=== PATIENT | female | born 1970 | race African-American/Black ===

== ENCOUNTER 2025-04-15 09:03 | Outpatient (AMB) | payer MEDICARE, MEDICAID, SELFPAY ==
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
[2025-04-15 09:07] VITALS: BP 110/74; PULSE 69; BMI 28.0
--- OUTSIDE RECORDS SUMMARY | 2025-04-15 09:36 | XMS_ITS | Clinical Summary ---
Author Organization [facility] Address [address] [place] [address] Care Team Providers Care Concreting Supervisor Name Role Phone Reece Bravo MD Primary Care Provider [phone] Allergies Active Allergy Reactions Criticality Noted Date Comments Latex 05/23/2024 Seasonal 05/22/2024 Medications Medication Sig Dispensed Refills Start Date End Date Status cetirizine (Allergy, Cetirizine,) 10 MG tablet Take 1 tablet (10 mg total) by mouth daily. 0 Active amitriptyline (ELAVIL) 10 MG tablet Take 3 tablets (30 mg total) by mouth every night at bedtime. 0 Active fluconazole (DIFLUCAN) 150 MG tablet Take 1 tablet (150 mg total) by mouth once. 0 Active fluticasone-vilanterol (BREO ELLIPTA) 100-25 MCG/ACT inhaler 1 inhalation. by Inhaled route daily. 0 Active gabapentin (NEURONTIN) 100 MG capsule Take 1 capsule (100 mg total) by mouth 2 (two) times a day. 0 Active prazosin (MINIPRESS) 2 MG capsule Take 1 capsule (2 mg total) by mouth every night at bedtime. 0 Active prazosin (MINIPRESS) 5 MG capsule Take 1 capsule (5 mg total) by mouth every night at bedtime. 0 Active propranolol (INDERAL) 20 MG tablet Take 1 tablet (20 mg total) by mouth 3 (three) times a day. 0 Active Family History Relation Name Status Comments Father Alive Social History Tobacco Use Types Packs/Day Years Used Date Smoking Tobacco: Never Smokeless Tobacco: Never Alcohol Use Standard Drinks/Week Comments Yes 0 (1 standard drink = 0.6 oz pur e alcohol) Socially Sex and Gender Information Value Date Recorded Sex Assigned at Not on file Gender Identity Not on file Sexual Orientation Not on file Job Start Date Occupation Industry Not on file Not on file Not on file Last Filed Vital Signs Vital Sign Reading Time Taken Comments Blood Pressure 131/72 05/23/2024 9:20 AM EDT Pulse 69 05/23/2024 9:20 AM EDT Temperature 36.6 C (97.9 F) 05/23/2024 9:20 AM EDT Respiratory Rate - - Oxygen Saturation 100% 05/23/2024 9:20 AM EDT Inhaled Oxygen Concentration - - Weight 74.1 kg (163 lb 6.4 oz) 05/23/2024 9:20 A M EDT Height 162.6 cm (5' 4 ) 05/23/2024 9:20 AM EDT Body Mass Index 28.05 05/23/2024 9:20 AM EDT Plan of Treatment Health Maintenance Due Date Last Done Comments Hepatitis B Vaccines (1 of 3 - 3-dose series) 1968 Hepatitis C Screening 1968 Pneumococcal Vaccine (1 of 2 - PCV) 1974 Depression Screening 1980 Preventative Health Evaluation 1986 DTap / Tdap / Td (1 - Tdap) 12/02/1987 Shingrix-Zoster Vaccine (1 o f 2) 12/02/1987 Cervical Cancer Screening (Pap Smear) 1989 Colon Cancer Screening (Colonoscopy) 2013 Breast Cancer Screening (Mammogram) 2018 COVID-19 Vaccine (4 - 2023-2 5 season) 2024 09/27/2021, 01/14/2021, 12/23/2020 Influenza Vaccine (#1) 2025 RSV Ped < 20 months Aged Out No longe r eligible based on patient's age to complete this topic Care Teams Concreting Supervisor Relationship Specialty Start Date End Date Reece Bravo MD [address] [place] [address] PCP - General Internal Medicine 02/15/24
--- OUTSIDE RECORDS SUMMARY | 2025-04-15 09:36 | XMS_ITS | Clinical Summary ---
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 -------- FINAL REPORT -------- Dictated By: Ian Tuttle Dictated Date: 03/01/2025 14:59 ET Assigned Physician: Ian Tuttle Reviewed and Electronically Signed By: Ian Tuttle Signed Date: 03/01/2025 15:01 ET Workstation ID: [id number] Transcribed By: Self Edit Transcribed Date: 03/01/2025 14:59 ET Narrative 03/01/2025 3:01 PM EDT HISTORY: hand numbness TECHNIQUE: AP, lateral, and oblique radiographs of the bilateral hands COMPARISON: None FINDINGS: Right: There is normal mineralization with no evidence of fracture or malalignment. There is mild joint space narrowing at the second, third and fourth DIP joints with subchondral sclerosis and small osteophytes. No significant soft tissue swelling is identified. Left: Normal mineralization without no evidence of fracture or dislocation. There is mild joint space narrowing at the third, fourth and fifth DIP joint with subchondral sclerosis and small osteophytes. Mild joint space narrowing at the base of the thumb with subchondral sclerosis and small osteophyte. Procedure Note Ian Tuttle MD - 03/01/2025 HISTORY: hand numbness TECHNIQUE: AP, lateral, and oblique radiographs of the bilateral hands COMPARISON: None FINDINGS: Right: There is normal mineralization with no evidence of fracture ormalalignment. There is mild joint space narrowing at the second, third andfourth DIP joints with subchondral sclerosis and small osteophytes. Nosignificant soft tissue swelling is identified. Left: Normal mineralization without no evidence of fracture or dislocation.There is mild joint space narrowing at the third, fourth and fifth DIPjoint with subchondral sclerosis and small osteophytes. Mild joint spacenarrowing at the base of the thumb with subchondral sclerosis and smallosteophyte. 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 -------- FINAL REPORT -------- Dictated By: Ian Tuttle Dictated Date: 03/01/2025 14:59 ET Assigned Physician: Ian Tuttle Reviewed and Electronically Signed By: Ian Tuttle Signed Date: 03/01/2025 15:01 ET Workstation ID: [id number] Transcribed By: Self Edit Transcribed Date: 03/01/2025 14:59 ET us Reece Bravo MD IMG XR PROCEDURES Final Res ult * XR Foot 3+ Views bilat (02/28/2025 1:20 PM EDT) Anatomical Region Laterality Modality Lower Extremities, Foot [facility] 03/01/2025 3:04 PM EDT Addenda Addendum by Ian Tuttle MD on 03/04/2025 11:10 AM EDT Please note the history should state feet numbness -------- ADDENDUM -------- Dictated By: Ian Tuttle Dictated Date: 03/04/2025 11:09 ET Assigned Physician: Ian Tuttle Reviewed and Electronically Signed By: Ian Tuttle Signed Date: 03/04/2025 11:10 ET Workstation ID: [id number] Transcribed By: Self Edit Transcribed Date: 03/04/2025 11:09 ET Impressions 03/01/2025 3:09 PM EDT No acute fracture or dislocation of the bilateral feet. -------- FINAL REPORT -------- Dictated By: Ian Tuttle Dictated Date: 03/01/2025 15:04 ET Assigned Physician: Ian Tuttle Reviewed and Electronically Signed By: Ian Tuttle Signed Date: 03/01/2025 15:09 ET Workstation ID: [id number] Transcribed By: Self Edit Transcribed Date: 03/01/2025 15:04 ET Narrative 03/01/2025 3:09 PM EDT HISTORY: hand numbness TECHNIQUE: AP, lateral, and oblique radiographs of the bilateral feet COMPARISON: None FINDINGS: The foot demonstrates normal mineralization with no fracture or malalignment. The visualized articulations are normal. Incidentally noted is chronic foreshortening of the fourth and fifth right metatarsals. No significant soft tissue swelling is identified. Small calcaneal spurs are present. Procedure Note Ian Tuttle MD - 03/01/2025 HISTORY: hand numbness TECHNIQUE: AP, lateral, and oblique radiographs of the bilateral feet COMPARISON: None FINDINGS: The foot demonstrates normal mineralization with no fracture ormalalignment. The visualized articulations are normal. Incidentallynoted is chronic foreshortening of the fourth and fifth right metatarsals.No significant soft tissue swelling is identified. Small calcaneal spursare present. IMPRESSION: No acute fracture or dislocation of the bilateral feet. -------- FINAL REPORT -------- Dictated By: Ian Tuttle Dictated Date: 03/01/2025 15:04 ET Assigned Physician: Ian Tuttle Reviewed and Electronically Signed By: Ian Tuttle Signed Date: 03/01/2025 15:09 ET Workstation ID: [id number] Transcribed By: Self Edit Transcribed Date: 03/01/2025 15:04 ET Reece Bravo MD IMG XR PROCEDURES Edited Re sult - Final * HPV with reflex genotype (02/06/2025 3:15 PM EDT) HPV Negative Negative LAB MICROBIOLOGY METHOD 02/10/2025 2:04 PM EDT [facility] Brushing Cervix uteri structure / Unknown 02/06/2025 3:15 PM EDT 02/07/2025 6:54 AM EDT Jeffrey NASCIMENTO LAB MOLECULAR DIAGNOSTICS ORD ERABLES Final Result [facility] [address] [place] [id number], * Pap smear (02/06/2025 3:15 PM EDT) Interpretation Negative for intraepithelial lesion or malignancy 02/11/2025 2:55 PM EDT [facility] General Categorization Negative 02/11/2025 2:55 PM EDT [facility] Specimen Adequacy Satisfactory for evaluation, endocervical/santa sformation zone component present 02/11/2025 2:55 PM EDT [facility] Pap Methodology Liquid Based Pap Test 02/11/2025 2:55 PM EDT [facility] Disclaimer The Pap test is a screening test which carries an inherent false negative rate. These test results should be correlated with the patient's clinical findings and history. This Pap test was processed using an automated screening system. Technical cytopathology services provided by [facility], at [address] [place] [id number] (CLIA # [id number]/Jatin Last MD, Utilization Reviewer.) 02/11/2025 2:55 PM EDT [facility] Console Pap Interpretation Reported 02/11/2025 2:55 PM EDT [facility] Brushing Cervix uteri structure / Unknown 02/06/2025 3:15 PM EDT 02/06/2025 3:15 PM EDT Jeffrey NASCIMENTO LAB CYTOLOGY ORDERABLES Final Result [facility] [address] [place] [address], [place] [phone] * Trichomonas vaginalis antigen (01/21/2025 11:42 AM EDT) Trichomonas vaginalis Negative Negative 01/21/2025 8:18 PM EDT [facility] Swab Vaginal structure / Unknown Non-blood Collection / Unknown 01/21/2025 11:42 AM EDT 01/21/2025 11:42 AM EDT Chantale NASCIMENTO LAB MICROBIOLOGY - GENERAL ORDE RABLES Final Result [facility] [address] [place] [address], [place] [phone] * Chlamydia trachomatis and Neisseria gonorrhoeae molecular study (01/21/2025 11:42 AM EDT) Neisseria gonorrhoeae PCR Negative Negative LAB MOLECULAR DIAGNOSTICS METHOD 01/22/2025 9:55 AM EDT [facility] Chlamydia trachomatis PCR Negative Negative LAB MOLECULAR DIAGNOSTICS METHOD 01/22/2025 9:55 AM EDT [facility] Swab Cervix uteri structure / Unknown Non-blood Collection / Unknown 01/21/2025 11:42 AM EDT 01/21/2025 11:42 AM EDT Chantale Venegas CNM LAB MICROBIOLOGY - GENERAL ORDE RABLES Final Result [facility] [address] [place] [address], * (ABNORMAL) POC [place] (01/21/2025 11:40 AM EDT) Pathologist [facility] Trichomonas, Wet Prep POC Absent Absent Yeast, Wet Prep POC Negative Not Applicable, Negative Clue Cells, Wet Prep POC Positive(A) Not Applicable, Negative WBC, Wet Prep POC Negative Not Applicable, Negative RBC, Wet Prep POC Negative Not Applicable, Negative Whiff Test, Wet Prep POC Negative Not Done, Negative PH FL Type POC 4.5 Vaginal Fluid Vaginal structure / Unknown 01/21/2025 11:40 AM EDT Chantale NASCIMENTO POINT OF CARE TEST ENTER/EDIT O RDERABLES Final Result * Hepatitis C antibody (01/15/2025 11:46 AM EDT) [facility] Hepatitis C Antibody Negative Negative LAB CHEMISTRY METHOD 01/15/2025 6:07 PM EDT [facility] Blood Venous blood specimen / Unknown Venipuncture / Unknown 01/15/2025 11:46 AM EDT 01/15/2025 11:46 AM EDT Reece Bravo MD LAB BLOOD ORDERABLES Final Result [facility] [address] [place] [address], * Thyroid stimulating hormone with reflex to free t4 and free t3 (01/15/2025 11:46 AM EDT) [facility] TSH 1.57 0.40 - 4.00 mcIU/mL LAB CHEMISTRY METHOD 01/15/2025 5:27 PM EDT [facility] Blood Venous blood specimen / Unknown Venipuncture / Unknown 01/15/2025 11:46 AM EDT 01/15/2025 11:46 AM EDT Reece Bravo MD LAB BLOOD ORDERABLES Final Result [facility] [address] [place] [address], [place] [phone] * (ABNORMAL) Lipid panel with reflex to direct LDL (01/15/2025 11:46 AM EDT) Cholesterol 209(H) 0 - 200 mg/dL LAB CHEMISTRY METHOD 01/15/2025 4:23 PM EDT [facility] Triglycerides 71 0 - 150 mg/dL LAB CHEMISTRY METHOD 01/15/2025 4:23 PM EDT [facility] HDL 56 >=40 mg/dL LAB CHEMISTRY METHOD 01/15/2025 4:23 PM EDT [facility] LDL Calculated 139(H) 0 - 100 mg/dL LAB CHEMISTRY METHOD 01/15/2025 4:23 PM EDT [facility] VLDL Cholesterol Jose 14.2 mg/dL LAB CHEMISTRY METHOD 01/15/2025 4:23 PM EDT [facility] Non HDL Chol. (LDL+VLDL) 153(H) <145 mg/dL LAB CHEMISTRY METHOD 01/15/2025 4:23 PM EDT [facility] Chol/HDL Ratio 3.7 0.0 - 4.4 LAB CHEMISTRY METHOD 01/15/2025 4:23 PM EDT [facility] Blood Venous blood specimen / Unknown Venipuncture / Unknown 01/15/2025 11:46 AM EDT 01/15/2025 11:46 AM EDT Reece Bravo MD LAB BLOOD ORDERABLES Final Result [facility] [address] [place] [address], [place] [phone] * (ABNORMAL) CBC auto differential (01/15/2025 11:46 AM EDT) [facility] WBC 3.2(L) 4.8 - 10.8 K/mcL LAB HEMETOLOGY METHOD 01/15/2025 2:29 PM EDT [facility] RBC 4.40 3.80 - 4.80 M/mcL LAB HEMETOLOGY METHOD 01/15/2025 2:29 PM EDT [facility] Hemoglobin 13.0 11.5 - 16.0 g/dL LAB HEMETOLOGY METHOD 01/15/2025 2:29 PM EDT [facility] Hematocrit 41.3 35.0 - 47.0 % LAB HEMETOLOGY [facility]2025 [facility] MCV 93.2 79.0 - 98.0 FL LAB HEMETOLOGY METHOD 01/15/2025 2:29 [facility] MCH 29.3 27.0 - 32.0 pcg LAB HEMETOLOGY METHOD 01/15/2025 2:29 [facility] MCHC 31.5(L) 32.0 - 37.0 g/dL LAB HEMETOLOGY METHOD 01/15/2025 2:29 [facility] RDW 12.3 11.0 - 15.0 % LAB HEMETOLOGY METHOD 01/15/2025 2:29 PM EDT [facility] Platelets 231 130 - 400 K/mcL LAB HEMETOLOGY METHOD 01/15/2025 2:29 PM EDT [facility] MPV 11.0 7.0 - 11.0 FL LAB HEMETOLOGY METHOD 01/15/2025 2:[facility] NRBC 0.0 <1.0 % LAB HEMETOLOGY METHOD 01/15/2025 2:[facility] NRBC Absolute 0.00 <0.10 K/mcL LAB HEMETOLOGY METHOD 01/15/2025 2:29 PM [facility] Neutrophils Relative 43.6 % LAB HEMETOLOGY METHOD 01/15/2025 2:29 PM [facility] Lymphocytes Relative 36.7 % LAB HEMETOLOGY METHOD 01/15/2025 2:29 PM [facility] Monocytes Relative 13.3 % LAB HEMETOLOGY METHOD 01/15/2025 2:29 PM [facility] Eosinophils Relative 5.2 % LAB HEMETOLOGY METHOD 01/15/2025 2:29 PM [facility] Basophils Relative 0.9 % LAB HEMETOLOGY METHOD 01/15/2025 2:29 PM [facility] Immature Granulocytes Relative 0.3 % LAB HEMETOLOGY METHOD 01/15/2025 2:29 PM [facility] Neutrophils Absolute 1.41(L) 1.50 - 7.00 K/mcL LAB HEMETOLOGY METHOD 01/15/2025 2:29 PM [facility] Lymphocytes Absolute 1.19 1.00 - 5.00 K/mcL LAB HEMETOLOGY METHOD 01/15/2025 2:29 PM [facility] Monocytes Absolute 0.43 0.20 - 1.00 K/mcL LAB HEMETOLOGY METHOD 01/15/2025 2:29 PM [facility] Eosinophils Absolute 0.17 0.00 - 0.50 K/mcL LAB HEMETOLOGY METHOD 01/15/2025 2:29 PM [facility] Basophils Absolute 0.03 0.00 - 0.20 K/mcL LAB HEMETOLOGY METHOD 01/15/2025 2:29 PM [facility] Immature Granulocytes Absolute 0.01 0.00 - 0.03 K/mcL LAB HEMETOLOGY METHOD 01/15/2025 2:29 PM [facility] Blood Venous blood specimen / Unknown Venipuncture / Unknown 01/15/2025 11:46 AM EDT 01/15/2025 11:46 AM EDT Reece Bravo MD LAB BLOOD ORDERABLES Final Result [facility] [address] [place] [address], * Comprehensive metabolic panel (01/15/2025 11:46 AM EDT) Sodium 143 133 - 145 mmol/L LAB CHEMISTRY METHOD 01/15/2025 4:23 PM [facility] Potassium 4.1 3.5 - 5.5 mmol/L LAB CHEMISTRY METHOD 01/15/2025 4:23 PM [facility] Chloride 109 96 - 110 mmol/L LAB CHEMISTRY METHOD 01/15/2025 4:23 PM [facility] CO2 30 21 - 32 mmol/L LAB CHEMISTRY METHOD 01/15/2025 4:23 PM [facility] Anion Gap 4 3 - 11 LAB CHEMISTRY METHOD 01/15/2025 4:23 PM [facility] Glucose 82 70 - 100 mg/dL LAB CHEMISTRY METHOD 01/15/2025 4:23 PM [facility] BUN 10 5 - 25 mg/dL LAB CHEMISTRY METHOD 01/15/2025 4:23 PM [facility] Creatinine 0.75 0.50 - 1.10 mg/dL LAB CHEMISTRY METHOD 01/15/2025 4:23 PM [facility] eGFR 94 >=60 mL/min/1. 73m2 LAB CHEMISTRY METHOD 01/15/2025 4:23 PM [facility] Comment:Calculation based on the Chronic Kidney Disease Epidemiology Collaboration (CKD-EPI) equation refit without adjustment for race. BUN/Creatinine Ratio 13.3 LAB CHEMISTRY METHOD 01/15/2025 4:23 PM T [facility] Calcium 9.2 8.5 - 10.5 mg/dL LAB CHEMISTRY METHOD 01/15/2025 4:23 PM [facility] AST (SGOT) 24 10 - 42 unit/L LAB CHEMISTRY METHOD 01/15/2025 4:23 PM [facility] ALT (SGPT) 29 10 - 60 unit/L LAB CHEMISTRY METHOD 01/15/2025 4:23 PM [facility] Alkaline Phosphatase 73 42 - 121 unit/L LAB CHEMISTRY METHOD 01/15/2025 4:23 PM [facility] Total Protein 8.0 6.0 - 8.0 g/dL LAB CHEMISTRY METHOD 01/15/2025 4:23 PM [facility] Albumin 4.1 3.2 - 5.0 g/dL LAB CHEMISTRY METHOD 01/15/2025 4:23 PM [facility] Total Bilirubin 0.5 0.0 - 1.4 mg/dL LAB CHEMISTRY METHOD 01/15/2025 4:23 PM [facility] Blood Venous blood specimen / Unknown Venipuncture / Unknown 01/15/2025 11:46 AM EDT 01/15/2025 11:46 AM EDT us Reece Bravo MD LAB BLOOD ORDERABLES Final Result [facility] [address] [place] [address], * BD Bone Density DXA Axial Skeleton (10/16/2024 2:05 PM EST) Anatomical Region Laterality Modality Wrist, Hip, L-spine Bone Densito metry 10/16/2024 4:08 PM EST Impressions 10/16/2024 4:10 PM EST Impression:Normal bone mineral density by WHO criteria. The [facility] Department of Internal Medicine recommends using National Osteoporosis Foundation (NOF) guidelines in treatment decisions related to osteoporosis. NOF guidelines suggest considering treatment for postmenopausal women and men aged 50 or older presenting with the following: History of hip or vertebral fracture. T-score = -2.5 (DXA) at the femoral neck, total hip, or spine, after appropriate evaluation to exclude secondary causes. Low bone mass (T-score between -1.0 and -2.5 at the femoral neck or spine) AND a 10-year probability of a hip fracture = 3% OR a 10-year probability of a major osteoporosis-related fracture = 20% based on the [place]-adapted WHO algorithm Please note that all treatment decisions require clinical judgment and consideration of individual patient factors, including patient preferences, co-morbidities, previous drug use, risk factors not captured in the FRAX model (e.g., frailty, falls, vitamin D deficiency, increased bone turnover, interval significant decline in bone density) and possible under- or over-estimation of fracture risk by FRAX. Optional alternative screening schedule based on arlyn Hu., [facility] September 22, 2011 for patients with osteopenia (based on hip BMD T-score) is as follows: * advanced osteopenia (T scores -2.00 to -2.49), BMD testing every year * moderate osteopenia (T scores -1.50 to -1.99), BMD testing every 5 years mild osteopenia or normal BMD (T scores -1.50 and higher), BMD testing every 15 years -------- FINAL REPORT -------- Dictated By: Sully Ferris Dictated Date: 10/16/2024 16:08 ET Assigned Physician: Sully Ferris Reviewed and Electronically Signed By: Sully Ferris Signed Date: 10/16/2024 16:10 ET Workstation ID: [id number] Transcribed By: Self Edit Transcribed Date: 10/16/2024 16:08 ET Narrative 10/16/2024 4:10 PM EST BONE DENSITY (DEXA) Lumbar Spine T-score is 1.3. (SD relative to 20-29 y/o adult) Z-score is 2.4. (SD relative to age matched peers) This is considered normal by WHO criteria. Left Hip T-score is 0.3. Z-score is 1.4. This is considered normal by WHO criteria. Comparison exam(s): Not available.. Procedure Note Sully Ferris MD - 10/16/2024 BONE DENSITY (DEXA) Lumbar Spine T-score is 1.3. (SD relative to 20-29 y/o adult) Z-score is 2.4. (SD relative to age matched peers) This is considered normal by WHO criteria. Left Hip T-score is 0.3. Z-score is 1.4. This is considered normal by WHO criteria. Comparison exam(s): Not available.. IMPRESSION: Impression:Normal bone mineral density by WHO criteria. The [facility] Department of Internal Medicine recommendsusing National Osteoporosis Foundation (NOF) guidelines in treatmentdecisions related to osteoporosis. NOF guidelines suggest consideringtreatment for postmenopausal women and men aged 50 or older presentingwith the following: History of hip or vertebral fracture. T-score = -2.5 (DXA) at the femoral neck, total hip, or spine, afterappropriate evaluation to exclude secondary causes. Low bone mass (T-score between -1.0 and -2.5 at the femoral neck or spine)AND a 10-year probability of a hip fracture = 3% OR a 10-year probabilityof a major osteoporosis-related fracture = 20% based on the [place]-adapted WHOalgorithm Please note that all treatment decisions require clinical judgment andconsideration of individual patient factors, including patientpreferences, co-morbidities, previous drug use, risk factors not capturedin the FRAX model (e.g., frailty, falls, vitamin D deficiency, increasedbone turnover, interval significant decline in bone density) and possibleunder- or over-estimation of fracture risk by FRAX. Optional alternative screening schedule based on arlyn Hu., [facility] for patients with osteopenia (based on hip BMD T-score)is as follows: * advanced osteopenia (T scores -2.00 to -2.49), BMD testing every year * moderate osteopenia (T scores -1.50 to -1.99), BMD testing every 5years mild osteopenia or normal BMD (T scores -1.50 and higher), BMD testingevery 15 years -------- FINAL REPORT -------- Dictated By: Sully Ferris Dictated Date: 10/16/2024 16:08 ET Assigned Physician: Sully Ferris Reviewed and Electronically Signed By: Sully Ferris Signed Date: 10/16/2024 16:10 ET Workstation ID: [id number] Transcribed By: Self Edit Transcribed Date: 10/16/2024 16:08 ET Jazmin BAHENA IMG DXA PROCEDURES Final Result from Last 3 Months or Most Recently Relevant to Health Maintenance Insurance MEDICARE [place] Care Teams Character Artist Relationship Specialty Start Date End Date Reece Bravo MD [address] [place] [address] PCP - General 02/06/24
== END 2025-04-15 09:59 | disposition home or self-care (01) ==
LOC: HO.HCS 09:04
PROVIDERS: PCP Internal Medicine; Visit Provider Internal Medicine Cardiovascular Disease
DX: R06.02 Shortness of breath (principal)
CPT/HCPCS: 93010; 99204; G2211

== ENCOUNTER → 2025-04-15 09:03 | Outpatient (BNVA) | payer MEDICARE, MEDICAID, SELFPAY | PROVIDERS: PCP Internal Medicine; Visit Provider Internal Medicine Cardiovascular Disease | DX: R06.02 Shortness of breath (principal); R94.31 Abnormal electrocardiogram [ECG] [EKG] | CPT/HCPCS: 93005; 99202 ==

== ENCOUNTER → 2025-05-22 12:53 | Outpatient (REF) | payer MEDICARE, MEDICAID, SELFPAY ==
--- NOTE | 2025-05-22 12:57 | CA_ITS ---
Transthoracic Echocardiogram Patient (Last, First, Middle): Montse Douglas, Gender: Female Date of : 1970 Age: 54 Procedure Date: 05/22/2025 Procedure Type: Transthoracic Echocardiogram Location: OP Height: 162.56 cm Weight: 73.94 kg BSA: 1.79 m2 Heart Rate: bpm BP: 110 / 74 mmHg Spike Driver: CHERYL Referring MD: Malachi May MD Symptoms: R06.02 - Shortness of breath Study Quality: Adequate ECG Rhythm: Sinus Conclusions: - The left ventricular systolic function is normal. The calculated ejection fraction is 70% by biplane method. - No obvious valvular pathology seen on this study. Findings Left Ventricle Normal left ventricular cavity size. There is normal left ventricular wall thickness. The left ventricular systolic function is normal. The calculated ejection fraction is 70% by biplane method. There is no evidence of regional wall motion abnormalities. Diastolic function is normal for age. Right Ventricle Normal right ventricular cavity size and systolic function. Atria Both atria are normal in size. Aortic Valve There is a normal trileaflet aortic valve. There is no aortic valve stenosis. There is trace (trivial) aortic valve regurgitation. Mitral Valve The mitral valve appears normal. There is no mitral valve regurgitation. There is no mitral valve stenosis. Pulmonic Valve There is trace to mild pulmonic valve regurgitation. Tricuspid Valve There is trace tricuspid valve regurgitation. There is no evidence of pulmonary hypertension. Great Vessels The asc aorta and aortic arch are normal in size. Venous The inferior vena cava is normal in size and collapses greater than 50% with inspiration. Pericardium/Pleural There is no evidence of pericardial effusion. Prior Study Comparison No prior study available for comparison. Recommendations, Care & Conclusions No obvious valvular pathology seen on this study. Measurements 2D Linear Measurements IVSd: 0.94 0.6-0.9/0.6-1.0 cm LVIDd: 4.21 3.9-5.3/4.2-5.9 cm LVIDd Index: 2.35 2.4-3.2/2.2-3.1 cm/m2 LVIDs: 2.32 2.0-3.6 cm LVPWd: 0.80 0.7-1.1 cm LA Diam: 3.60 2.7-3.8/3.0-4.0 cm LAIDs Index: 2.01 1.5-2.3 cm/m2 LV Mass: 140.59 67-162/88-224 g LV Mass Index: 78.54 43-95/49-115 g/m2 LVOT Diam: 2.00 3.0+(-)1.3 cm 2D Systolic Function EF 4C: 71.70 >55% EF 2C: 69.00 >55% EF BiP: 70.00 >55% Mitral Valve MV Pk E: 1.01 MV PK A: 0.58 MV Decel Time: 158.00 E/A: 1.70 E'Lateral: 8.16 E'Medial: 7.29 E/E' Med: 13.90 E/E' Lat: 12.40 PHT: 46.00 MVA PHT: 4.78 Decel [place]: 6.41 Aortic Valve AoV Pk Winston: 1.44 AoV Pk Grad: 8.00 ANGELES: 2.68 AI Pk Winston: 3.91 AI [place]: 1.80 LVOT LVOT Pk Winston: 1.27 LVOT Mn Winston: 0.87 LVOT VTI: 0.24 LVOT Pk Grad: 6.00 LVOT Mn Grad: 3.00 LVOT Diam: 2.00 LVOT Area: 3.14 Diastolic Function MV Pk E: 1.01 MV Pk A: 0.58 E/A: 1.70 E'Medial: 7.29 E/E' Med: 13.90 E' Laterial: 8.16 E/E' Lat: 12.40 Right Ventricle TAPSE (mm): 22.00 TVS' Winston: 10.40 Tricuspid Valve TR Pk Winston: 2.48 TR Pk Grad: 25.00 RA Press: 3.00 RVSP: 28.00 Great Vessels Aorta Sinus of Valsalva: 2.70 2.0-3.5 cm Ao Asc: 2.30 2.1-3.4 cm Ao Arch: 2.40 Pulmonary Veins Pulm Vein S/D 1.90 Pulmonary Valve PV Pk Winston: 1.03 Peak PV Grad: 4.00 TN Pk Winston: 1.97 Updated in Other Vendor System with Status of Final Victorino Clark MD electronically signed on 05/24/2025 11:15:03 AM with status of Final
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
--- OUTSIDE RECORDS SUMMARY | 2025-05-22 14:56 | XMS_ITS | Clinical Summary ---
Author Organization [facility] Address [address] [place] [address] Care Team Providers Care Fruit Or Nut Picker Name Role Phone Reece Bravo MD Primary [...] Screening (Mammogram) 2018 COVID-19 Vaccine (4 - 2024-2 6 season) 2025 09/27/2021, 01/14/2021, 12/23/2020 Influenza Vaccine (#1) 2025 RSV Ped < 20 months Aged Out No longe r eligible based on patient's age to complete this topic Care Teams Fruit Or Nut Picker Relationship Specialty Start Date End Date Reece Bravo MD [address] [facility] [place] [address] PCP - General Internal Medicine 02/15/24
== END ==
LOC: HO.CARD 12:53
PROVIDERS: PCP Internal Medicine; Visit Provider Internal Medicine Cardiovascular Disease
DX: R06.02 Shortness of breath (principal)
CPT/HCPCS: 93306

== ENCOUNTER → 2025-05-22 12:57 | Outpatient (BNV) | payer MEDICARE, MEDICAID, SELFPAY | PROVIDERS: PCP Internal Medicine; Visit Provider Internal Medicine | DX: R06.02 Shortness of breath (principal) | CPT/HCPCS: 93306 ==